=== PATIENT | female | born 2000 | race Caucasian/White ===

== ENCOUNTER 2021-04-01 16:00 | Emergency (ER) | payer OTHER, SELFPAY ==
--- NOTE | 2021-04-01 16:07 | ED.WOUNDLAC ---
HPI - Wound/Laceration General Chief Complaint: Wound/Laceration Stated Complaint: Cuts on finger Time Seen by Provider: 04/01/21 16:29 Source: patient and RN notes reviewed Mode of arrival: ambulatory Limitations: no limitations History of Present Illness HPI narrative: 20-year-old female presents with concern for superficial lacerations to digits 4 and 5 of the right hand she sustained his prior to arrival when she was washing dishes and a glass broke. She denies any concern for small shards of glass retained. Denies decreased range, sensation, range of motion in the digit. She denies intervention. Reports she is up-to-date on her vaccinations. Related Data Home Medications Medication Instructions Recorded Confirmed No Home Medications 04/01/21 04/01/21 Allergies Allergy/AdvReac Type Severity Reaction Status Date / Time amoxicillin [From Augmentin] AdvReac Nausea and Verified 04/01/21 16:31 Vomiting clavulanic acid AdvReac Nausea and Verified 04/01/21 16:31 [From Augmentin] Vomiting Review of Systems Review of Systems: CONSTITUTIONAL: Denies malaise, chills, sweats, or fever. SKIN: Reports small lacerations to the fourth and fifth digits MUSCULOSKELETAL: Denies muscle skeletal pain, decreased sensation, strength, range of motion NEUROLOGIC: Denies numbness, weakness. All systems reviewed & are unremarkable except as noted in HPI and below PMFSH Comments At time of signature, agree with nursing past medical, surgical, social and family history. There is no relevant family history pertinent to the presenting complaint Exam Narrative: GENERAL: Well-appearing, well-nourished, and in no acute distress. HEAD: Normocephalic EYES: PERRLA, conjunctivae clear NECK: Supple. CHEST: Speaks in full sentences. No respiratory distress. HEART: Regular rate and rhythm. Normal and equal peripheral pulses. EXTREMITIES: Right hand and digits of hand have normal strength and sensation. 5/5 strength with digit flexion, extension. Range of motion normal. No clubbing, cyanosis, or edema noted. No muscle skeletal tenderness. Normal digital cascade with flexion of fingers, median, ulnar and radial nerve intact. Normal sensation of each side of finger. Can perform 'okay' sign, 'cross over finger test of index and middle fingers' and 'thumbs up' sign. No scissoring. Normal thumb opposition. Good capillary refill and radial pulse. Distal capillary refill less than 3 seconds. SKIN: Warn, dry, intact, pink. 0.5 cm flap superficial laceration noted to the lateral aspect of the fifth digit of the right hand, no active bleeding. 0.5 cm superficial flap laceration noted to the dorsal aspect of the fourth digit of the right hand above the MIP joint with no active bleeding.Skin intact. NEURO: Alert and oriented x3. PSYCH: Normal mood and affect Course Course Emergency Course: Patient is aware of diagnosis, understands and agrees to treatment plan. Anticipatory guidance given. Patient agrees to follow-up as directed and is aware of reasons to seek care at the emergency department. Portions of this record may have been created with voice recognition software Vital Signs Vital signs: Reviewed. Procedures Laceration Laceration 1: Date: 04/01/21 Time: 16:36 Site: hand Side (If applicable): right Size (cm): 0.5 Description: flap Depth: simple, single layer Pre-repair: irrigated ====== Skin Level ====== Skin layer closed with: dermabond ====== Subcutaneous Layer ====== ====== Muscle Layer ====== ====== Tendon Layer ====== Laceration 2: Date: 04/01/21 Time: 16:36 Site: hand Side (If applicable): right Description: linear Depth: simple, single layer Pre-repair: irrigated ====== Skin Level ====== Skin layer closed with: dermabond ====== Subcutaneous Layer ====== ====== Muscle Laye
[2021-04-01 16:16] VITALS: BP 98/50; PULSE 70; RESP 16; TEMP 36.1; O2SAT 100
[2021-04-01 16:24] VITALS: BP 98/50; PULSE 70; RESP 16; TEMP 36.1; O2SAT 100
== END 2021-04-01 16:48 | disposition home or self-care (01) ==
PROVIDERS: Emergency Provider Nurse Practitioner; PCP Nurse Practitioner Family
DX: S61.214A Laceration without foreign body of right ring finger without damage to nail, initial encounter (principal); S61.216A Laceration without foreign body of right little finger without damage to nail, initial encounter; W25.XXXA Contact with sharp glass, initial encounter; Y93.G1 Activity, food preparation and clean up
CPT/HCPCS: 12001; 99202; G0463

== ENCOUNTER 2021-04-03 12:07 | Emergency (ER) | payer OTHER, SELFPAY ==
[2021-04-03 12:19] VITALS: BP 109/57; PULSE 72; RESP 16; TEMP 36.4; O2SAT 99
--- NOTE | 2021-04-05 17:44 | ED.WOUNDLAC ---
HPI - Wound/Laceration General Chief Complaint: Wound/Laceration Stated Complaint: CUT RIGHT HAND Time Seen by Provider: 04/03/21 13:28 Source: patient and RN notes reviewed Mode of arrival: ambulatory Limitations: no limitations History of Present Illness HPI narrative: Patient presents today for recheck of a repaired laceration. She was seen here at [facility] on 04/01/2021 and had some lacerations repaired with glue on her right fourth and fifth fingers. States laceration to her right fifth finger has been oozing fluid and she wanted to come in and have it reevaluated. Denies pain, redness, swelling. States the fluid is clear. Related Data Home Medications Medication Instructions Recorded Confirmed No Home Medications 04/01/21 04/01/21 Allergies Allergy/AdvReac Type Severity Reaction Status Date / Time amoxicillin [From Augmentin] AdvReac Nausea and Verified 04/01/21 16:31 Vomiting clavulanic acid AdvReac Nausea and Verified 04/01/21 16:31 [From Augmentin] Vomiting Review of Systems Review of Systems: CONSTITUTIONAL: Denies body aches, fever, chills, or sweats. EYES: Denies visual changes, redness, or discharge. ENT: Denies rhinorrhea, congestion, sore throat, or otalgia. CARDIOVASCULAR: Denies chest pain, palpitations, or edema. RESPIRATORY: Denies cough or dyspnea. GASTROINTESTINAL: Denies abdominal pain, nausea, vomiting, or diarrhea. GENITOURINARY: Denies dysuria or hematuria. SKIN: Denies rash, itching. + Right fifth finger laceration with clear fluid MUSCULOSKELETAL: Denies back pain, joint pain, or myalgia. NEUROLOGIC: Denies headache, numbness, tingling, or weakness. PSYCH: Denies depression or anxiety. PMFSH Comments At time of signature, I have reviewed and agree with nursing past medical, surgical, social and family history unless otherwise noted. Please see nursing chart for further information. There is no relevant family history pertinent to the presenting complaint Exam Narrative: GENERAL: Well-appearing, well-nourished, and in no acute distress. HEAD: Normocephalic, atraumatic. EYES: EOMI. No redness or drainage. Conjunctivae normal. ENT: Mucous membranes pink and moist. NECK: Normal AROM. CHEST: No respiratory distress. EXTREMITIES: Normal range of motion. No edema. SKIN: Warm, dry, no rash. Capillary refill normal. Normal skin turgor. Right fifth finger: Repaired V-shaped flap laceration. The tiny corner has a moderate amount of yellow serous fluid draining. There is no erythema, edema, purulent discharge noted. Patient has full range of motion of the finger. Additional laceration is dry without erythema, edema, or drainage. NEURO: No focal deficits. Alert and oriented x3. Gait steady. PSYCH: Normal affect. No signs of depression or anxiety. Course Vital Signs Vital signs: Vital Signs Temperature 97.5 F L 04/03/21 12:19 Pulse Rate 72 04/03/21 12:19 Respiratory Rate 16 04/03/21 12:19 Blood Pressure 109/57 L 04/03/21 12:19 Pulse Oximetry 99 04/03/21 12:19 Temperature 97.5 F L 04/03/21 12:19 Pulse Rate 72 04/03/21 12:19 Respiratory Rate 16 04/03/21 12:19 Blood Pressure 109/57 L 04/03/21 12:19 Pulse Oximetry 99 04/03/21 12:19 Reviewed MDM - Wound/Laceration Differential Diagnosis Differential diagnosis: Likely laceration, abrasion, avulsion of skin and other (Cellulitis, abscess, seroma) Medical Records Attestation: I reviewed the patient's medical records. Critical Care Time Critical Care Time Critical Care Time: No Discharge Plan Discharge Clinical Impression: Encounter for wound re-check Patient Disposition: Home, Self-Care Condition: Stable Prescriptions: No Action No Home Medications RF: 0 Follow-up/Referrals: UNKNOWN,DOCTOR [Primary Care Provider] -
== END 2021-04-03 13:40 | disposition home or self-care (01) ==
LOC: EXPCOLL 12:13
PROVIDERS: Emergency Provider Nurse Practitioner
DX: S61.216D Laceration without foreign body of right little finger without damage to nail, subsequent encounter (principal); S61.214D Laceration without foreign body of right ring finger without damage to nail, subsequent encounter; X58.XXXD Exposure to other specified factors, subsequent encounter
CPT/HCPCS: 99213; G0463